=== PATIENT | male | born 1955 | race Caucasian/White ===

== ENCOUNTER 2020-01-09 18:45 | Emergency (ER) | payer OTHER ==
[2020-01-09] MEDS ORDERED: NA CHLORIDE 0.9% 1,000 ML ONE ×3 (19:05→20:35)
[2020-01-09 19:15] LABS: Absolute Lymphocytes (CBC) 1.7 K/uL (0.7-4.9); Basophils % 0.5 % (0-1.3); Hematocrit 41.2 % (39.6-49.0); Lymphocytes % 14.8 % (15.3-44.8); MPV 9.4 fL (7.6-11.3); RBC Red Blood Cell Count 4.47 M/uL (4.33-5.43)
[2020-01-09 19:20] LABS: Protime INR 1.08
--- NOTE | 2020-01-09 19:46 | RAD REPORT ---
EXAM DESCRIPTION: RAD - Chest Single View - 01/09/2020 7:18 pm CLINICAL HISTORY: Fatigue, shortness of breath TECHNIQUE: AP portable chest image was obtained 01/09/2020 7:18 pm . FINDINGS: Lungs are clear. Heart and vasculature are normal. No measurable pleural effusion and no p neumothorax. No acute bony abnormality seen. No acute aortic findings suspected. IMPRESSION: No acute cardiopulmonary process.
[2020-01-09 20:04] LABS: ALT/SGPT 20 U/L (12-78); AST/SGOT 18 U/L (15-37); Albumin 3.5 g/dL (3.4-5.0); Alkaline Phosphatase 57 U/L (45-117); BUN Blood Urea Nitrogen 22 mg/dL (7-18); Bicarbonate 22 mmol/L (21-32); Bilirubin Direct 0.2 mg/dL (0-0.2); Bilirubin Total 0.7 mg/dL (0.2-1.0); Glucose Level 97 mg/dL (74-106); Magnesium 2.3 mg/dL (1.8-2.4); NT PRO-BNP 371 pg/mL (<125); Protein, Total 6.7 g/dL (6.4-8.2); Sodium Level 140 mmol/L (136-145); Troponin (Emerg Dept Use Only) < 0.02 ng/mL (0.0-0.045)
--- NOTE | 2020-01-09 21:59 | ER ---
Nurse's Notes [facility] Name: Aki Crawford Age: 64 yrs Sex: Male : 1955 Arrival Date: 01/09/2020 Time: 18:48 Bed 6 Private MD: Diagnosis: Dehydration Presentation: 01/08 19:02 Chief complaint: Patient states: Was riding his bike, stopped to take a break and jl7 started feeling lightheaded, fatigued, sweaty and clammy. Pt appears diaphoretic, pale and drowsy. Denies cough \T\ fever, denies any pain. Coronavirus screen: Patient denies fever greater than 100.4F, cough, shortness of breath, or difficulty breathing. Proceed with normal triage process. Ebola Screen: No symptoms or risks identified at this time. Initial Sepsis Screen: Does the patient meet any 2 criteria? Systolic BP < 90 mmHg. Mean Arterial Pressure (MAP) < 65. Yes Does the patient have a suspected source of infection? No. Patient's initial sepsis screen is negative. Risk Assessment: Do you want to hurt yourself or someone else? Patient reports no desire to harm self or others. Onset of symptoms was January 09, 2020 at 18:30. 19:02 Method Of Arrival: Ambulatory [facility] 19:02 Acuity: IDALMIS 2 jl7 Triage Assessment: 18:55 General: Appears uncomfortable, ill, Behavior is calm, cooperative, appropriate for jl7 age. Pain: Denies pain. Neuro: Level of Consciousness is awake, obeys commands, Drowsy. Oriented to person, place, time, situation, Speech is normal, Facial symmetry appears normal. Cardiovascular: Reports fatigue, lightheadedness, Denies chest pain, skin cool, diaphoretic and clammy. Rhythm is regular. Respiratory: Airway is patent Respiratory effort is even, unlabored, Respiratory pattern is regular, symmetrical. Derm: Skin is diaphoretic, Skin is pale, Skin temperature is cool. Historical: - Allergies: 19:07 No Known Allergies; jl7 - Home Meds: 19:07 losartan oral oral [Active]; jl7 - PMHx: 19:07 Hypertension; jl7 - PSHx: 19:07 left ACL; jl7 - Immunization history:: Adult Immunizations up to date. - Social history:: Smoking status: Patient denies any tobacco usage or history of. Screenin:55 Abuse screen: Denies threats or abuse. Denies injuries from another. Nutritional jl7 screening: No deficits noted. Tuberculosis screening: No symptoms or risk factors identified. Fall Risk No fall in past 12 months (0 pts). No secondary diagnosis (0 pts). IV access (20 points). Ambulatory Aid- None/Bed Rest/Nurse Assist (0 pts). Gait- Weak (10 pts.). Mental Status- Oriented to own ability (0 pts). Total Rae Fall Scale indicates Low Risk Score (25-44 pts). Fall prevention measures have been instituted. Side Rails Up X 2 Placed close to Nursing Station Frequent Obs/Assesments occuring As available Patient and Family Educated on Fall Prevention Program and strategies. Assessment: 19:10 General: Appears in no apparent distress. comfortable, Behavior is calm, Reports rr5 fatigue for. 19:10 Pain: Denies pain. Neuro: Level of Consciousness is awake, alert, obeys commands, rr5 Oriented to person, place, time, situation, Reports light headed. Cardiovascular: Capillary refill < 3 seconds Patient's skin is warm and dry. Respiratory: Airway is patent Respiratory effort is even, unlabored, Respiratory pattern is regular, symmetrical. GI: No signs and/or symptoms were reported involving the gastrointestinal system. : No signs and/or symptoms were reported regarding the genitourinary system. EENT: No signs and/or symptoms were reported regarding the EENT system. Derm: Skin is intact, Skin is pale, Skin temperature is warm. Musculoskeletal: Circulation, motion, and sensation intact. Capillary refill < 3 seconds. 20:30 Reassessment: Patient appears in no apparent distress at this time. Patient is alert, rr5 oriented x 3, equal unlabored respirations, skin warm/dry/pink. 3rd liter of fluid hooked as follow up. 21:30 Reassessment: Patient appears in no apparent distress at this time. No changes from rr5 previously documented assessment. Patient is alert, oriented x 3, equal unlabored respirations, skin warm/dry/pink. Patient states feeling better. Patient states symptoms have improved. 22:10 Reassessment: Patient appears in no apparent distress at this time. Patient is alert, rr5 oriented x 3, equal unlabored respirations, skin warm/dry/pink. discharge instruction given and explained without complaint made. Patient denies pain at this time. Patient states feeling better. Patient states symptoms have improved. Vital Signs: 18:55 BP 84 / 69 RA; jl7 19:02 BP 84 / 69; Pulse 66; Resp 13 S; Temp 97.7(O); Pulse Ox 98% on R/A; Weight 108.86 kg jl7 (R); Height 6 ft. 1 in. (185.42 cm) (R); Pain 0/10; 19:09 BP 88 / 65 LA; jl7 19:25 BP 97 / 67; Pulse 66; Resp 18; Pulse Ox 97% ; rr5 20:32 BP 102 / 72; Pulse 69; Resp 17; Pulse Ox 100% on R/A; rr5 21:15 BP 111 / 73; Pulse 75; Resp 19; Pulse Ox 98% ; rr5 22:09 BP 115 / 79; Pulse 79; Resp 16; Temp 98; Pulse Ox 99% on R/A; rr5 19:02 Body Mass Index 31.66 (108.86 kg, 185.42 cm) [facility] Vitals: 18:55 Cardiac Rhythm Assessment Regular. [facility] ED Course: 18:48 Patient arrived in ED. as 18:53 Castro Pittman NP is PHCP. pm1 18:53 Jarek Cornejo MD is Attending Physician. pm1 18:55 Arm band placed on right wrist. jl7 18:55 Patient has correct armband on for positive identification. Bed in low position. Call [facility] light in reach. Side rails up X2. case monitor on. Pulse ox on. NIBP on. 18:55 EKG completed in triage. Results shown to . jl7 19:00 Initial lab(s) drawn, by ED staff, sent to lab. Inserted saline lock: 20 gauge in right [facility] antecubital area, using aseptic technique. Blood collected. 19:06 Triage completed. jl7 19:16 XRAY Chest (1 view) In Process Unspecified. EDMS 19:25 Oswaldo Kaufman, SHEY is Primary Nurse. rr5 22:10 No provider procedures requiring assistance completed. IV discontinued, intact, rr5 bleeding controlled, No redness/swelling at site. Pressure dressing applied. Administered Medications: 19:12 Drug: NS 0.9% 1000 ml Route: IV; Rate: 1000 ml; Site: right antecubital; jl7 19:45 Follow up: Response: No adverse reaction; IV Status: Completed infusion; IV Intake: rr5 1000ml 19:45 Drug: NS 0.9% 1000 ml Route: IV; Rate: 1 bolus; Site: right antecubital; rr5 20:33 Follow up: Response: No adverse reaction; IV Status: Completed infusion; IV Intake: rr5 1000ml 20:33 Drug: NS 0.9% 1000 ml Route: IV; Rate: 1 bolus; Site: right antecubital; rr5 21:30 Follow up: Response: No adverse reaction; IV Status: Completed infusion; IV Intake: rr5 1000ml Intake: 19:45 IV: 1000ml; Total: 1000ml. rr5 20:33 IV: 1000ml; Total: 2000ml. rr5 21:30 IV: 1000ml; Total: 3000ml. rr5 Outcome: 21:58 Discharge ordered by MD. pm1 22:10 Discharged to home ambulatory. rr5 22:10 Condition: stable 22:10 Discharge instructions given to patient, Instructed on discharge instructions, follow up and referral plans. Demonstrated understanding of instructions, follow-up care. 22:12 Patient left the ED. rr5 Signatures: Dispatcher [employer] Maria Guadalupe Shabazz Patrick, NP BUSINESS DATABASE ANALYST pm1 Larry Farrar RN RN jl7 Oswaldo Kaufman RN RN rr5
--- NOTE | 2020-01-09 21:59 | EDPHYS ---
Physician Documentation [facility] Name: Aki Crawford Age: 64 yrs Sex: Male : 1955 Arrival Date: 01/09/2020 Time: 18:48 Bed 6 Private MD: ED Physician Jarek Cornejo HPI: 01/08 19:09 This 64 yrs old Male presents to ER via Ambulatory with complaints of pm1 Fatigue, Lightheaded. 19:09 Onset: 30 minute(s) ago. Associated signs and symptoms: Pertinent negatives: abdominal pm1 pain, cough, nausea, palpitations, shortness of breath, vomiting, chest pain, fever, diarrhea . Modifying factors: The symptoms are alleviated by nothing. the symptoms are aggravated by nothing. Severity of pain: in the emergency department the pain is a 0 / 10. The patient has not experienced similar symptoms in the past. Patient biked 35 miles of his planned 50 miles and stopped for a break. He started feeling light headed and fatigued. No chest pain or shortness of breath. Patient mowed the lawn two days in a row prior to his biking today and did not hydrate well those days. Historical: - Allergies: 19:07 No Known Allergies; jl7 - Home Meds: 19:07 losartan oral oral [Active]; jl7 - PMHx: 19:07 Hypertension; jl7 - PSHx: 19:07 left ACL; jl7 - Immunization history:: Adult Immunizations up to date. - Social history:: Smoking status: Patient denies any tobacco usage or history of. ROS: 19:09 Neck: Negative for injury, pain, and swelling, Cardiovascular: Negative for chest pain, pm1 palpitations, and edema, Respiratory: Negative for shortness of breath, cough, wheezing, and pleuritic chest pain, Abdomen/GI: Negative for abdominal pain, nausea, vomiting, diarrhea, and constipation, Back: Negative for injury and pain, MS/Extremity: Negative for injury and deformity, Skin: Negative for injury, rash, and discoloration. 19:09 Constitutional: Positive for fatigue, Negative for body aches, chills. 19:09 Neuro: Positive for light headed. Exam: 19:09 Constitutional: This is a well developed, well nourished patient who is awake, alert, pm1 and in no acute distress. Head/Face: Normocephalic, atraumatic. Neck: Trachea midline, no thyromegaly or masses palpated, and no cervical lymphadenopathy. Supple, full range of motion without nuchal rigidity, or vertebral point tenderness. No Meningismus. Chest/axilla: Normal chest wall appearance and motion. Nontender with no deformity. No lesions are appreciated. Cardiovascular: Regular rate and rhythm with a normal S1 and S2. No gallops, murmurs, or rubs. Normal PMI, no JVD. No pulse deficits. Respiratory: Lungs have equal breath sounds bilaterally, clear to auscultation and percussion. No rales, rhonchi or wheezes noted. No increased work of breathing, no retractions or nasal flaring. Abdomen/GI: Soft, non-tender, with normal bowel sounds. No distension or tympany. No guarding or rebound. No evidence of tenderness throughout. Back: No spinal tenderness. No costovertebral tenderness. Full range of motion. Skin: Warm, dry with normal turgor. Normal color with no rashes, no lesions, and no evidence of cellulitis. MS/ Extremity: Pulses equal, no cyanosis. Neurovascular intact. Full, normal range of motion. 19:09 Neuro: Exam negative for acute changes, Orientation: is normal, Mentation: is normal, Motor: is normal, moves all fours. Vital Signs: 18:55 BP 84 / 69 RA; jl7 19:02 BP 84 / 69; Pulse 66; Resp 13 S; Temp 97.7(O); Pulse Ox 98% on R/A; Weight 108.86 kg 7 (R); Height 6 ft. 1 in. (185.42 cm) (R); Pain 0/10; 19:09 BP 88 / 65 LA; jl7 19:25 BP 97 / 67; Pulse 66; Resp 18; Pulse Ox 97% ; rr5 20:32 BP 102 / 72; Pulse 69; Resp 17; Pulse Ox 100% on R/A; rr5 21:15 BP 111 / 73; Pulse 75; Resp 19; Pulse Ox 98% ; rr5 22:09 BP 115 / 79; Pulse 79; Resp 16; Temp 98; Pulse Ox 99% on R/A; rr5 19:02 Body Mass Index 31.66 (108.86 kg, 185.42 cm) 7 MDM: 18:53 Patient medically screened. pm1 21:32 Data reviewed: vital signs. Data interpreted: Pulse oximetry: on room air is 98 %. pm1 Interpretation: normal. 21:57 Counseling: I had a detailed discussion with the patient and/or guardian regarding: the pm1 historical points, exam findings, and any diagnostic results supporting the discharge/admit diagnosis, lab results, radiology results, the need for outpatient follow up, to return to the emergency department if symptoms worsen or persist or if there are any questions or concerns that arise at home. 01/08 19:01 Order name: Basic Metabolic Panel; Complete Time: 20:06 pm1 01/08 19:01 Order name: CBC with Diff; Complete Time: 19:21 pm1 01/08 19:01 Order name: LFT's; Complete Time: 20:06 pm1 01/08 19:01 Order name: Magnesium; Complete Time: 20:06 pm1 01/08 19:01 Order name: NT PRO-BNP; Complete Time: 20:06 pm1 01/08 19:01 Order name: PT-INR; Complete Time: 20:03 pm1 01/08 19:01 Order name: Troponin (emerg Dept Use Only); Complete Time: 20:06 pm1 01/08 19:01 Order name: XRAY Chest (1 view); Complete Time: 19:48 pm1 01/08 19:01 Order name: Flu; Complete Time: 19:48 pm1 01/08 19:09 Order name: Glucose, Ancillary Testing; Complete Time: 19:13 EDMS 01/08 19:01 Order name: Cardiac monitoring; Complete Time: 19:30 pm1 01/08 19:01 Order name: EKG - Nurse/Tech; Complete Time: 19:30 pm1 01/08 19:01 Order name: IV Saline Lock; Complete Time: 19:30 pm1 01/08 19:01 Order name: Labs collected and sent; Complete Time: 19:30 pm1 01/08 19:01 Order name: O2 Per Protocol; Complete Time: 19:30 pm1 01/08 19:01 Order name: O2 Sat Monitoring; Complete Time: 19:30 pm1 Administered Medications: 19:12 Drug: NS 0.9% 1000 ml Route: IV; Rate: 1000 ml; Site: right antecubital; jl7 19:45 Follow up: Response: No adverse reaction; IV Status: Completed infusion; IV Intake: rr5 1000ml 19:45 Drug: NS 0.9% 1000 ml Route: IV; Rate: 1 bolus; Site: right antecubital; rr5 20:33 Follow up: Response: No adverse reaction; IV Status: Completed infusion; IV Intake: rr5 1000ml 20:33 Drug: NS 0.9% 1000 ml Route: IV; Rate: 1 bolus; Site: right antecubital; rr5 21:30 Follow up: Response: No adverse reaction; IV Status: Completed infusion; IV Intake: rr5 1000ml Disposition: 22:58 Co-signature as Attending Physician, Jarek Cornejo MD. ursula Disposition: 01/09/20 21:58 Discharged to Home. Impression: Dehydration. - Condition is Stable. - Discharge Instructions: Dehydration, Adult, Rehydration, Adult. - Medication Reconciliation Form, Thank You Letter, Antibiotic Education, Prescription Opioid Use form. - Follow up: Emergency Department; When: As needed; Reason: Worsening of condition. Follow up: Private Physician; When: 2 - 3 days; Reason: Recheck today's complaints, Continuance of care, Re-evaluation by your physician. - Problem is new. - Symptoms have improved. Signatures: Dispatcher [employer] EDMS Jarek Cornejo MD MD pk Castro Pittman, ARCHITECTURAL ENGINEER ARCHITECTURAL ENGINEER pm1 Larry Farrar RN RN jl7 Oswaldo Kaufman, RN RN rr5 Corrections: (The following items were deleted from the chart) 22:12 21:58 01/09/2020 21:58 Discharged to Home. Impression: Dehydration. Condition is rr5 Stable. Forms are Medication Reconciliation Form, Thank You Letter, Antibiotic Education, Prescription Opioid Use. Follow up: Emergency Department; When: As needed; Reason: Worsening of condition. Follow up: Private Physician; When: 2 - 3 days; Reason: Recheck today's complaints, Continuance of care, Re-evaluation by your physician. Problem is new. Symptoms have improved. pm1
[2020-01-09 22:29] VITALS: BP 115/79; TEMP 98; O2SAT 99
--- NOTE | 2020-01-10 16:40 | EKG ---
Test Date: 2020-01-09 Test Time: 18:56:23 Loss Prevention Investigator: KULWANT MEASUREMENT RESULTS: Intervals: Rate: 66 AL: 182 QRSD: 76 QT: 396 QTc: 415 [place]: P: 65 AL: 182 QRS: 50 T: 54 INTERPRETIVE STATEMENTS: Normal sinus rhythm Normal ECG No previous ECG available for comparison Electronically Signed On 01-10-20 16:39:48 CDT by Dexter Denise
== END 2020-01-09 22:12 | disposition home or self-care (01) ==
LOC: ER 18:45
DX: E86.0 Dehydration (principal); I10 Essential (primary) hypertension
CPT/HCPCS: 96361; 93005; 85025; 80048; 36415; 83735; 85610; 82947; 80076; 84484; 83880; 87804 ×2; 71045; 96360; 99284; J7030 ×3